=== PATIENT | female | born 1940 | race Caucasian/White ===

== ENCOUNTER 2017-01-09 07:37 | Emergency (ER) | payer OTHER, MEDICARE ==
[~2017-01-09] VITALS: Ht 160 cm; Wt 66.2 kg
[~2017-01-09 07:37] MED LIST: ASP81TEC PO; CALTRATE 600 +1 EACH PO; CETI10TA17 PO; CHOL40002 PO; CYANOCOBALAMIN; CYCL1DRO OP; EST.625T PO; EST45C VG; FLT05NA16 NSEACH; FLUT50DI IH; HYDR200T46 PO; LACT1TAB12 PO; LEVO75TA57 PO; MELA1CAP2 PO; MULT-1029 PO; NF-ESOM40C PO; OFLO5DRO7 OT; OMEG-12 PO; REMICADE; VIT1TABL93 PO
[2017-01-09 08:06] LABS: MEAN PLATELET VOLUME 10.4 FL (7.4-10.4); RED BLOOD COUNT 4.42 10^6/uL (4.35-5.85); RED CELL DISTRIBUTION WIDTH 13.9 % (10.0-14.5)
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
[2017-01-09] MEDS ORDERED: ATEN25TA PO (08:25)
[2017-01-09] MEDS ORDERED: LOSA100T28 PO (08:25)
[2017-01-09 08:26] LABS: ALANINE AMINOTRANSFERASE 30 U/L (0-55); ALBUMIN 4.1 GM/DL (3.2-4.5); ALCOHOL < 10 MG/DL (<10); ANION GAP 11 MMOL/L (5-14); ASPARTATE AMINO TRANSFERASE 27 U/L (5-34); BILIRUBIN,DIRECT 0.2 MG/DL (0.0-0.3); BILIRUBIN,INDIRECT 0.6 MG/DL; BILIRUBIN,TOTAL 0.8 MG/DL (0.1-1.0); BLOOD UREA NITROGEN 9 MG/DL (7-18); BUN/CREATININE RATIO 9; CARBON DIOXIDE 25 MMOL/L (21-32); CHLORIDE 105 MMOL/L (98-107); CREATININE SERUM 1.04 MG/DL (0.60-1.30); GFR ESTIMATED 52; GLUCOSE 97 MG/DL (70-105); POTASSIUM 3.6 MMOL/L (3.6-5.0); SODIUM 141 MMOL/L (135-145); TOTAL PROTEIN 7.6 GM/DL (6.4-8.2)
[2017-01-09] MEDS ORDERED: NS IV 1000 ML 1,000 ML IV ONE (08:29)
[2017-01-09] MEDS ORDERED: NS 100 ML (IVPB) BAG IV ONE (08:45)
[2017-01-09] MEDS ORDERED: CATHETER FLUSH 10 ML SYR IV PRN (08:45)
[2017-01-09] MEDS ORDERED: IOHEXOL 350 MG/ML 100 ML (OMNIPAQUE 350) VIAL IV ONE (08:45)
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
--- NOTE | 2017-01-09 09:04 | Diagnostic Imaging Report ---
PROCEDURE: CT thoracic spine without contrast. TECHNIQUE: Multiple axial computerized tomography images were obtained from the base of the thoracic spine to the vertex without intravenous contrast. INDICATION: Upper chest pain. COMPARISON: CT chest from same day. FINDINGS: Static alignment of the thoracic spine is maintained. There is no significant dara or retrolisthesis. There is no evidence of jumped facets. Evaluation of vertebral body contours demonstrates subtle deformity of the superior endplates of T1, T2, and T3. Distinct fracture lines however cannot be identified. There is no prior available for comparison. Otherwise, remaining vertebral body heights are preserved. No bony fragments are seen within the spinal canal. There are mild multilevel degenerative changes consisting of intervertebral disc height loss. Pre-and paravertebral soft tissue structures are unremarkable. Included portions of the lungs are clear. Please note, CT of the chest was also performed, but separately dictated. Finally, there is calcified aortic and coronary artery atherosclerosis. IMPRESSION: Subtle deformities of the superior endplates of T1 through T3. Chronic deformities are favored, but there is no prior available for comparison. Acute injury cannot be entirely excluded. Correlation with MRI is recommended. Report was called to Dr. Gomez @ [facility], [place] @ 9:04 AM/cecilia. Dictated by: Dictated on workstation # [id number]
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
[2017-01-09 09:21] LABS: BILIRUBIN,URINE NEGATIVE (NEGATIVE); KETONES,URINE NEGATIVE (NEGATIVE); LEUKOCYTE ESTERASE ,URINE 1+ (NEGATIVE); NITRITE,URINE NEGATIVE (NEGATIVE); PH,URINE 8 (5-9); PROTEIN,URINE 2+ (NEGATIVE); UROBILINOGEN,URINE NORMAL (NORMAL)
[2017-01-09 09:34] LABS: SQUAMOUS EPITHELIAL CELL,UR RARE /HPF; WBC,URINE 0-2 /HPF
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
[2017-01-09 11:20] VITALS: BP 142/81
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
== END 2017-01-09 11:20 | disposition home or self-care (01) ==
LOC: EDUNIT# 07:40 → ER 07:41
DX: S12.9XXA Fracture of neck, unspecified, initial encounter (principal); S22.000A Wedge compression fracture of unspecified thoracic vertebra, initial encounter for closed fracture; S20.212A Contusion of left front wall of thorax, initial encounter; Z79.82 Long term (current) use of aspirin; Z87.891 Personal history of nicotine dependence; V49.60XA Unspecified car occupant injured in collision with unspecified motor vehicles in traffic accident, initial encounter
CPT/HCPCS: 36415; 70450; 71010; 71260; 72125; 72128; 74177; 80048; 80076; 80320; 81000; 84484; 85027; 86850; 86900; 86901; 93005; 93041; 96360

== ENCOUNTER 2020-08-31 22:48 | Emergency (ER) | payer MEDICARE ==
[~2020-08-31] VITALS: Ht 160 cm; Wt 66.0 kg
[~2020-08-31 22:48] MED LIST changes: +ATEN25TA PO; +LOSA100T57 PO; +OFLO5DRO33 OT; -OFLO5DRO7 OT
[2020-08-31] MEDS ORDERED: NITROGLYCERIN 0.4 MG SL TABS BTL 25'S SL PRN (23:00)
[2020-08-31] MEDS ORDERED: ASPIRIN 81 MG CHEW (CHILDREN'S ASA) PO ONE (23:00)
[2020-08-31 23:09] LABS: BASOPHILS # (AUTO) 0.1 10^3/uL (0.0-0.1); BASOPHILS % (AUTO) 1 % (0-10); EOSINOPHILS # (AUTO) 0.1 10^3/uL (0.0-0.3); EOSINOPHILS % (AUTO) 2 % (0-10); HEMATOCRIT 38 % (35-52); LYMPHOCYTES # (AUTO) 2.7 10^3/uL (1.0-4.0); LYMPHOCYTES % (AUTO) 34 % (12-44); MEAN CORPUSCULAR HEMOGLOBIN 29 pg (25-34); MEAN CORPUSCULAR HGB CONC 32 g/dL (32-36); MEAN CORPUSCULAR VOLUME 90 fL (80-99); MEAN PLATELET VOLUME 10.1 fL (9.0-12.2); MONOCYTES # (AUTO) 0.7 10^3/uL (0.0-1.0); MONOCYTES % (AUTO) 9 % (0-12); NEUTROPHILS # (AUTO) 4.2 10^3/uL (1.8-7.8); NEUTROPHILS % (AUTO) 54 % (42-75); PLATELET COUNT 256 10^3/uL (130-400); WHITE BLOOD COUNT 7.8 10^3/uL (4.3-11.0)
[2020-08-31] MEDS ORDERED: ENOXAPARIN 80 MG/0.8 ML (LOVENOX) SYR SC ONE (23:15)
[2020-08-31 23:22] LABS: ALBUMIN 4.2 GM/DL (3.2-4.5); POTASSIUM 3.4 MMOL/L (3.6-5.0)
[2020-08-31 23:23] LABS: CALCIUM 9.2 MG/DL (8.5-10.1); INR 0.9 (0.8-1.4); PROTHROMBIN TIME PATIENT 12.4 SEC (12.2-14.7)
[2020-08-31 23:24] LABS: TOTAL PROTEIN 7.9 GM/DL (6.4-8.2)
[2020-08-31 23:26] LABS: BILIRUBIN,TOTAL 0.5 MG/DL (0.1-1.0)
[2020-08-31 23:31] LABS: MAGNESIUM 1.9 MG/DL (1.6-2.4)
[2020-08-31 23:38] LABS: CREATINE KINASE MB 1.9 NG/ML (<6.6)
[2020-08-31 23:53] LABS: TSH (THYROID ANALYZER) 0.36 UIU/ML (0.35-4.94)
--- NOTE | 2020-09-01 01:19 | ED Cardiac General ---
History of Present Illness General Chief Complaint: Chest Pain Stated Complaint: CHEST PAIN,NAUSEA Nursing Triage Note: c/o chest pain after coughing at 1930 Source: patient History of Present Illness Date Seen by Provider: Aug 31, 2020 Time Seen by Provider: 23:00 Initial Comments PT ARRIVES VIA POV FROM HOME C/O CHEST PAIN SINCE 193 TONIGHT, AFTER GETTING HOME FROM A MEETING PAIN IS ALL ACROSS CHEST ALSO STATES HER HEART RATE HAS BEEN FAST AND IRREGULAR SINCE THEN WELL--HEART RATE 100-163 STATES SHE HAS HAD ATRIAL FIBRILLATION IN THE PAST, BUT HAS NOT HAD IT FOR A LONG TIME, AND IS NOT ON BLOOD THINNERS. C/O SHORTNESS OF BREATH. STATES SHE HAS COPD AND IS ALWAYS SHORT OF BREATH, BUT THIS IS A LITTLE WORSE THAN NORMAL + SWEATS + NAUSEA, NO VOMITING NO SWELLING OR RECENT ILLNESS PT HAS HISTORY OF CAD AND HAS HAD STENT X 1 NO CHANGES IN MEDICATIONS NTG SL AMMUNITION OFFICER: No ASA po AMMUNITION OFFICER: No PCP: [facility] RESOLUTION EXPERT: DR. DIEHL AT [place] Allergies and Home Medications Allergies Coded Allergies: amoxicillin trihydrate (Verified Allergy, Intermediate, 03/16/12) cefuroxime sodium (Verified Allergy, Intermediate, 03/16/12) doxycycline (Verified Allergy, Intermediate, 03/16/12) potassium clavulanate (Verified Allergy, Intermediate, 03/16/12) Home Medications Aspirin 81 Mg Tabec, 81 MG PO DAILY, (Reported) Atenolol 25 Mg Tablet, 25 MG PO DAILY, (Reported) Cetirizine Hcl 10 Mg Tablet, 10 MG PO DAILY, (Reported) Cholecalciferol (Vitamin D3) 4,000 Unit Capsule, 5,000 UNIT PO DAILY, (Reported) Cyclosporine 32 Ea Droperette, 1 DROPS OP DAILY, (Reported) Estrogens Conjugated 45 Gm Cr, 0.5 GM VG DAILY, (Reported) 1 APPLICATORFUL MON., WED. MON. Fluticasone Propionate 16 Gm [place], 2 SPRAYS NSEACH Q12H PRN, (Reported) Lactobacillus Cmb#7/Fos/Inulin 1 Each Tablet, 1 EACH PO PRN, (Reported) Levothyroxine Sodium 75 Mcg Tablet, 75 MCG PO DAILY, (Reported) Losartan Potassium 100 Mg Tablet, 100 MG PO DAILY, (Reported) Jeff-3/Dha/Epa/Fish Oil 1 Each Capsule.dr, 2,000 MG PO DAILY, (Reported) [B-12 Inject] , Q 7 WEEKS, (Reported) [Remicade] , 100 MG Q 8 WEEKS, (Reported) Patient Home Medication List Home Medication List Reviewed: Yes Review of Systems Review of Systems Constitutional: see HPI, diaphoresis, dizziness Respiratory: See HPI, Shortness of Air Cardiovascular: See HPI, Chest Pain; Denies Edema; Irregular Heart Rate, Lightheadedness, Palpitations Gastrointestinal: See HPI; Denies Abdominal Pain; Nausea; Denies Vomiting Genitourinary: No Symptoms Reported Musculoskeletal: no symptoms reported Skin: no symptoms reported Psychiatric/Neurological: No Symptoms Reported Endocrine: No Symptoms Reported Hematologic/Lymphatic: No Symptoms Reported Past Wsodgpm-Svaycl-Yjrfgc Hx Past Med/Social Hx: Reviewed and Corrections made Patient Social History Alcohol Use: Denies Use Drug of Choice: [place] Smoking Status: Former Smoker (SMOKED 1/2 PPD) Former Smoker, Quit: Dec 24, 2013 Recent Infectious Disease Expo: No Recent Hopitalizations: No Immunizations Up To Date Date of Pneumonia Vaccine: May 15, 2005 Date of Influenza Vaccine: Feb 24, 2012 Seasonal Allergies Seasonal Allergies: No Past Medical History Surgeries: Yes Appendectomy, Coronary Stent, Ear Surgery, Joint Replacement Respiratory: Yes COPD Cardiac: Yes (STENT X 1 IN 2005) Atrial Fibrillation, Coronary Artery Disease, High Cholesterol, Hypertension Neurological: No 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 Genitourinary: No Gastrointestinal: Yes Gastroesophageal Reflux, Hiatal Hernia Musculoskeletal: Yes (VERTEBRAL COMPRESSION FRACTURES; LEFT HIP REPLACEMENT) Arthritis, Rheumatoid Arthritis, Fractures Endocrine: Yes Hypothyroidsim HEENT: Yes (Sinus problems, deviated septum) Cancer: No Psychosocial: No Integumentary: No Blood Disorders: No Family Medical History No Pertinent Family Hx PAST SURGICAL HISTORY: -CARDIAC CATH WITH STENT X 1 2005 -LEFT HIP REPLACEMENT -BILATERAL MYRINGOTOMY TUBES -APPENDECTOMY Physical Exam Vital Signs Vital Signs - First Documented 08/31/20 22:52 Temp 36.6 Pulse 126 Resp 18 B/P (MAP) 170/109 (129) Pulse Ox 93 O2 Delivery Room Air Capillary Refill : Less Than 3 Seconds Height, Weight, BMI Height: 5'3.00" Weight: 146lbs. 7.0oz. 66.293501pg; 25.00 BMI Method:Stated General Appearance: No Apparent Distress, WD/WN HEENT: PERRL/EOMI Neck: Normal Inspection; No Carotid Bruit, No JVD Respiratory: Normal Breath Sounds, No Accessory Muscle Use, No Respiratory Distress Cardiovascular: No JVD, No Murmur, Normal Peripheral Pulses, Irregularly Irregular, Tachycardia Gastrointestinal: Non Tender, Soft Extremity: Normal Inspection, Normal Range of Motion, Non Tender, No Calf Tenderness, No Pedal Edema Neurologic/Psychiatric: Alert, Oriented x3, No Motor/Sensory Deficits, Normal Mood/Affect, loan approver II-XII Norm as Tested Skin: Normal Color, Warm/Dry Progress/Results/Core Measures Results/Orders Lab Results Laboratory Tests Test 08/31/20 23:00 Range/Units White Blood Count 7.8 4.3-11.0 10^3/uL Red Blood Count 4.18 3.80-5.11 10^6/uL Hemoglobin 12.0 11.5-16.0 g/dL Hematocrit 38 35-52 % Mean Corpuscular Volume 90 80-99 fL Mean Corpuscular Hemoglobin 29 25-34 pg Mean Corpuscular Hemoglobin Concent 32 32-36 g/dL Red Cell Distribution Width 13.4 10.0-14.5 % Platelet Count 256 130-400 10^3/uL Mean Platelet Volume 10.1 9.0-12.2 fL Immature Granulocyte % (Auto) 0 % Neutrophils (%) (Auto) 54 42-75 % Lymphocytes (%) (Auto) 34 12-44 % Monocytes (%) (Auto) 9 0-12 % Eosinophils (%) (Auto) 2 0-10 % Basophils (%) (Auto) 1 0-10 % Neutrophils # (Auto) 4.2 1.8-7.8 10^3/uL Lymphocytes # (Auto) 2.7 1.0-4.0 10^3/uL Monocytes # (Auto) 0.7 0.0-1.0 10^3/uL Eosinophils # (Auto) 0.1 0.0-0.3 10^3/uL Basophils # (Auto) 0.1 0.0-0.1 10^3/uL Immature Granulocyte # (Auto) 0.0 0.0-0.1 10^3/uL Prothrombin Time 12.4 12.2-14.7 SEC INR Comment 0.9 0.8-1.4 Activated Partial Thromboplast Time 32 24-35 SEC Sodium Level 139 135-145 MMOL/L Potassium Level 3.4 L 3.6-5.0 MMOL/L Chloride Level 103 98-107 MMOL/L Carbon Dioxide Level 20 L 21-32 MMOL/L Anion Gap 16 H 5-14 MMOL/L Blood Urea Nitrogen 11 7-18 MG/DL Creatinine 1.00 0.60-1.30 MG/DL Estimat Glomerular Filtration Rate 53 BUN/Creatinine Ratio 11 Glucose Level 109 H 70-105 MG/DL Calcium Level 9.2 8.5-10.1 MG/DL Corrected Calcium 9.0 8.5-10.1 MG/DL Magnesium Level 1.9 1.6-2.4 MG/DL Total Bilirubin 0.5 0.1-1.0 MG/DL Aspartate Amino Transf (AST/SGOT) 21 5-34 U/L Alanine Aminotransferase (ALT/SGPT) 19 0-55 U/L Alkaline Phosphatase 49 40-136 U/L Total Creatine Kinase 119 29-168 U/L Creatine Kinase MB 1.9 <6.6 NG/ML Myoglobin 72.8 10.0-92.0 NG/ML Troponin I < 0.028 <0.028 NG/ML B-Type Natriuretic Peptide 263.3 H <100.0 PG/ML Total Protein 7.9 6.4-8.2 GM/DL Albumin 4.2 3.2-4.5 GM/DL Amylase Level 137 H 25-125 U/L Lipase 73 8-78 U/L TSH [place] Testing 0.36 0.35-4.94 UIU/ML My Orders Orders - MALCOM HERNANDEZ DO Cbc With Automated Diff (08/31/20 22:57) Magnesium (08/31/20 22:57) Chest 1 View, Ap/Pa Only (08/31/20 22:57) Ekg Tracing (08/31/20 22:57) Comprehensive Metabolic Panel (08/31/20 22:57) Myoglobin Serum (08/31/20 22:57) Protime With Inr (08/31/20:57) Partial Thromboplastin Time (08/31/20 22:57) O2 (08/31/20 22:57) Monitor-Rhythm Ecg Trace Only (08/31/20 22:57) Ed Iv/Invasive Line Start (08/31/20 22:57) Creatine Kinase (08/31/20 22:57) Creatine Kinase Mb (08/31/20 22:57) Lipase (08/31/20 22:57) Amylase (08/31/20 22:57) BNP (08/31/20 22:57) Troponin I (08/31/20 22:57) Nitroglycerin 0.4 Mg Btl 25's (Nitrostat (08/31/20 23:00) Aspirin Chewable Tablet (Baby Aspirin Ch (08/31/20 23:00) Thyroid Analyzer (08/31/20 23:01) Enoxaparin Injection (Lovenox Injection) (08/31/20 23:15) Diltiazem Injection (Cardizem Injection) (08/31/20 23:15) Ekg Tracing (09/01/20 00:16) Ekg Tracing (09/01/20 01:34) Medications Given in ED Current Medications Medications Dose Ordered Sig/Jaime Route Start Time Stop Time Status Last Admin Dose Admin Aspirin 324 mg ONCE ONCE PO 08/31/20 23:00 08/31/20 23:01 DC 08/31/20 23:13 324 MG Diltiazem HCl 10 mg ONCE ONCE IVP 08/31/20 23:15 08/31/20 23:16 DC 08/31/20 23:13 10 MG Enoxaparin Sodium 70 mg ONCE ONCE SC 08/31/20 23:15 08/31/20 23:16 DC 08/31/20 23:13 70 MG Vital Signs/I&O 08/31/20 08/31/20 08/31/20 09/01/20 22:52 22:52 22:52 01:43 Temp 36.6 36.6 Pulse 126 61 Resp 18 28 B/P (MAP) 170/109 (129) 138/74 Pulse Ox 93 93 94 O2 Delivery Room Air Room Air Room Air Room Air Blood Pressure Mean: 129 Progress Progress Note : Progress Note GIVEN ASPIRIN GAVE CARDIZEM 10 MG X 1 DOSE, WITH DECREASED IN HEART RATE DOWN TO 80'S-90'S, AND BP DOWN TO NORMAL RANGE GAVE LOVENOX CHEST PAIN RESOLVED WITHOUT FURTHER TREATMENT EMS WAS PREPARING FOR TRANSFER, PT C/O SOME MILD CHEST DISCOMFORT, MONITOR NOW SHOWS NSR REPEAT EKG DONE AND IS IN NSR WITH NO ACUTE ST CHANGES. PAIN GRADUALLY RESOLVED ON IT'S OWN UNEVENTFUL ER STAY Initial ECG Impression Date: Aug 31, 2020 Initial ECG Impression Time: 22:55 Initial ECG Rate: 127 Initial ECG Rhythm: A Fib/Flutter Initial ECG Impression: Nonspecific Changes EKG : EKG Time: 00:28 Rate: 88 Rhythm: A Fib/Flutter Comment EKG #3 AT 0135, RATE 63, NORMAL SINUS RHYTHM, NO ACUTE CHANGES/NORMAL ST SEGMENTS. Diagnostic Imaging Comments CXR--NO ACUTE PROCESS, PENDING RADIOLOGIST REVIEW Reviewed: Reviewed by Me Departure Communication (Admissions) [id number]--CALLED [facility]. PAGING RESOLUTION EXPERT [id number]--SPOKE WITH DR. VELEZ, RESOLUTION EXPERT, ACCEPTS PT FOR ADMIT. NO ADDITIONAL RECOMMENDATIONS AT THIS TIME. Impression Primary Impression: Chest pain Additional Impressions: RECURRENT ATRIAL FIBRILLATION WITH RVR HTN (hypertension) HX OF CAD WITH STENT Disposition: 02 XFER SHT-TRM HOSP Condition: Improved Transfer Transfer Reason: Patient preference Transfer Facility: [place], [place] Method of Transfer: EMS Departure-Patient Inst. Referrals: NO,LOCAL PHYSICIAN (PCP/Family) Primary Care Physician MALCOM HERNANDEZ DO Sep 01, 2020 01:19
[2020-09-01 01:43] VITALS: BP 138/74
--- NOTE | 2020-09-01 05:58 | Diagnostic Imaging Report ---
EXAMINATION: Portable erect AP chest at 1116 PM INDICATION: Chest pain The heart size is within normal limits and stable when compared to 01/09/2017. The chronic pulmonary changes seen previously are again evident and no different. There is no sign of failure, pneumonia or pleural effusion to indicate an acute abnormality. The mediastinum is not widened. The osseous structures are intact. IMPRESSION: There is no evidence for active disease. Dictated by: Dictated on workstation # [id number]
== END 2020-09-01 01:48 | disposition short-term general hospital (02) ==
LOC: EDUNIT# 22:48 → ER 22:50
DX: R07.9 Chest pain, unspecified (principal); I48.20 Chronic atrial fibrillation, unspecified; I10 Essential (primary) hypertension; E03.9 Hypothyroidism, unspecified; J44.9 Chronic obstructive pulmonary disease, unspecified; Z88.1 Allergy status to other antibiotic agents; Z88.8 Allergy status to other drugs, medicaments and biological substances; Z95.5 Presence of coronary angioplasty implant and graft; Z87.891 Personal history of nicotine dependence; Z79.890 Hormone replacement therapy; Z79.82 Long term (current) use of aspirin
CPT/HCPCS: 36415; 71045; 80053; 82150; 82550; 82553; 83690; 83735; 83874; 83880; 84443; 84484; 85025; 85610; 85730; 93005; 93041

== ENCOUNTER 2020-09-24 22:19 | Emergency (ER) | payer MEDICARE ==
[~2020-09-24] VITALS: Ht 160 cm; Wt 61.0 kg
[2020-09-24] MEDS ORDERED: fentaNYL INJ 100 MCG/2 ML AMP IVP ONE ×2 (22:45→23:30)
--- NOTE | 2020-09-24 22:57 | ED Lower Extremity ---
General Chief Complaint: Lower Extremity Stated Complaint: FOOT PAIN Nursing Triage Note: TO ED VIA [facility] FROM HOME WITH C/O PAIN THAT STARTED AN HOUR OR SO CORSETIER TO TOPS AND BOTTOMS OF BILATERAL FEET. Nursing Sepsis Screen: No Definite Risk Source: patient Exam Limitations: no limitations History of Present Illness Date Seen by Provider: September 24, 2020 Time Seen by Provider: 22:20 Initial Comments This 80-year-old woman presents to the emergency room via EMS with complaints of red, hot, swollen, and extremely painful feet bilaterally. Symptoms started early this evening. She has never experienced anything quite like this before. She reports recently starting amiodarone in an effort to control her atrial fibrillation. She also reports a history of rheumatoid arthritis for which she has been on Remicade. She did not get her Remicade dose on Monday as planned. She is afebrile and denies any other new symptoms. [facility] provider [facility] [place]. Her primary warp dyeing tender is Dr. Bermudez. She denies diabetes or neuropathy. Her feet are so painful she is unable to walk. Allergies and Home Medications Allergies Coded Allergies: amoxicillin trihydrate (Verified Allergy, Intermediate, 03/16/12) cefuroxime sodium (Verified Allergy, Intermediate, 03/16/12) doxycycline (Verified Allergy, Intermediate, 03/16/12) potassium clavulanate (Verified Allergy, Intermediate, 03/16/12) Home Medications Aspirin 81 Mg Tabec, 81 MG PO DAILY, (Reported) Atenolol 25 Mg Tablet, 25 MG PO DAILY, (Reported) Cetirizine Hcl 10 Mg Tablet, 10 MG PO DAILY, (Reported) Cholecalciferol (Vitamin D3) 4,000 Unit Capsule, 5,000 UNIT PO DAILY, (Reported) Cyclosporine 32 Ea Drope[place], 1 DROPS OP DAILY, (Reported) Estrogens Conjugated 45 Gm Cr, 0.5 GM VG DAILY, (Reported) 1 APPLICATORFUL MON., WED. MON. Fluticasone Propionate 16 Gm [place], 2 SPRAYS NSEACH Q12H PRN, (Reported) Hydrocodone/Acetaminophen 1 Each Tablet, 0.5-1 TAB PO Q4H PRN for PAIN-MODERATE (5-7) Prescribed by: MUKESH ROSE on 09/25/20 0205 Lactobacillus Cmb#7/Fos/Inulin 1 Each Tablet, 1 EACH PO PRN, (Reported) Levothyroxine Sodium 75 Mcg Tablet, 75 MCG PO DAILY, (Reported) Losartan Potassium 100 Mg Tablet, 100 MG PO DAILY, (Reported) Magnesium Oxide 400 Mg Tablet, 400 MG PO BID Prescribed by: MUKESH ROSE on 09/25/20203 [place]-3/Dha/Epa/Fish Oil 1 Each Capsule.dr, 2,000 MG PO DAILY, (Reported) Potassium Chloride 20 Meq Tablet.er, 20 MEQ PO DAILY Prescribed by: MUKESH ROSE on 09/25/20203 [B-12 Inject] , Q 7 WEEKS, (Reported) [Remicade] , 100 MG Q 8 WEEKS, (Reported) Patient Home Medication List Home Medication List Reviewed: Yes Review of Systems Constitutional: no symptoms reported EENTM: no symptoms reported Respiratory: no symptoms reported Cardiovascular: see HPI Gastrointestinal: no symptoms reported Genitourinary: no symptoms reported : No Musculoskeletal: see HPI Skin: see HPI Psychiatric/Neurological: No Symptoms Reported Past Iuhxtus-Vkrtyw-Micioq Hx Past Med/Social Hx: Reviewed Nursing Past Med/Soc Hx Patient Social History Alcohol Use: Denies Use Drug of Choice: LILA Smoking Status: Former Smoker Former Smoker, Quit: Dec 24, 2013 Recent Infectious Disease Expo: No Recent Hopitalizations: No Immunizations Up To Date Date of Pneumonia Vaccine: May 15, 2005 Date of Influenza Vaccine: Feb 24, 2012 Seasonal Allergies Seasonal Allergies: No Past Medical History Surgeries: Yes Appendectomy, Coronary Stent, Ear Surgery, Joint Replacement Respiratory: Yes COPD Cardiac: Yes (STENT X 1 IN 2005) Atrial Fibrillation, Coronary Artery Disease, High Cholesterol, Hypertension Neurological: No 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 Genitourinary: No Gastrointestinal: Yes Gastroesophageal Reflux, Hiatal Hernia Musculoskeletal: Yes (VERTEBRAL COMPRESSION FRACTURES; LEFT HIP REPLACEMENT) Arthritis, Rheumatoid Arthritis, Fractures Endocrine: Yes Hypothyroidsim HEENT: Yes (Sinus problems, deviated septum) Cancer: No Psychosocial: No Integumentary: No Blood Disorders: No Family Medical History No Pertinent Family Hx PAST SURGICAL HISTORY: -CARDIAC CATH WITH STENT X 1 2005 -LEFT HIP REPLACEMENT -BILATERAL MYRINGOTOMY TUBES -APPENDECTOMY Physical Exam Vital Signs Vital Signs - First Documented 09/24/20 09/25/20 22:22 02:19 Temp 37.0 Pulse 103 Resp 16 B/P (MAP) 114/98 (103) Pulse Ox 98 O2 Delivery Room Air Capillary Refill : Less Than 3 Seconds Height, Weight, BMI Height: 5'3.00" Weight: 146lbs. 7.0oz. 66.440904vk; 23.00 BMI Method:Stated General Appearance: WD/WN, mild distress HEENT: PERRL/EOMI, normal ENT inspection Neck: normal inspection Cardiovascular: no edema, no murmur, tachycardia (Regular) Respiratory: lungs clear, normal breath sounds, no respiratory distress Gastrointestinal: normal bowel sounds, non tender, soft Legs: bilateral leg non-tender, bilateral leg normal inspection, bilateral leg no evidence of injury Knees: bilateral knee non-tender, bilateral knee normal inspection, bilateral knee no evidence of injury Ankles: bilateral ankle joint effusion, bilateral ankle pain, bilateral ankle soft tissue tenderness, bilateral ankle swelling Feet: bilateral foot pain, bilateral foot soft tissue tenderness, bilateral foot swelling Neurologic/Tendon: other (Hypersensitive to touch of the feet and ankles) Neurologic/Psychiatric: expediter service order II-XII nml as tested, no motor/sensory deficits, alert, normal mood/affect, oriented x 3, other (Slight tremor) Skin: warm/dry, other (Erythema and warmth of the feet and ankle) Progress/Results/Core Measures Results/Orders Lab Results Laboratory Tests Test 09/24/20 22:45 Range/Units White Blood Count 12.0 H 4.3-11.0 10^3/uL Red Blood Count 3.54 L 3.80-5.11 10^6/uL Hemoglobin 9.9 L 11.5-16.0 g/dL Hematocrit 30 L 35-52 % Mean Corpuscular Volume 86 80-99 fL Mean Corpuscular Hemoglobin 28 25-34 pg Mean Corpuscular Hemoglobin Concent 33 32-36 g/dL Red Cell Distribution Width 13.2 10.0-14.5 % Platelet Count 235 130-400 10^3/uL Mean Platelet Volume 9.8 9.0-12.2 fL Immature Granulocyte % (Auto) 0 % Neutrophils (%) (Auto) 90 H 42-75 % Lymphocytes (%) (Auto) 5 L 12-44 % Monocytes (%) (Auto) 4 0-12 % Eosinophils (%) (Auto) 0 0-10 % Basophils (%) (Auto) 0 0-10 % Neutrophils # (Auto) 10.8 H 1.8-7.8 10^3/uL Lymphocytes # (Auto) 0.6 L 1.0-4.0 10^3/uL Monocytes # (Auto) 0.5 0.0-1.0 10^3/uL Eosinophils # (Auto) 0.0 0.0-0.3 10^3/uL Basophils # (Auto) 0.0 0.0-0.1 10^3/uL Immature Granulocyte # (Auto) 0.0 0.0-0.1 10^3/uL Neutrophils % (Manual) 81 % Lymphocytes % (Manual) 4 % Monocytes % (Manual) 4 % Band Neutrophils 11 % Blood Morphology Comment NORMAL Erythrocyte Sedimentation Rate 35 H 0-30 MM/HR Sodium Level 131 L 135-145 MMOL/L Potassium Level 2.7 L 3.6-5.0 MMOL/L Chloride Level 98 98-107 MMOL/L Carbon Dioxide Level 22 21-32 MMOL/L Anion Gap 11 5-14 MMOL/L Blood Urea Nitrogen 9 7-18 MG/DL Creatinine 1.50 H 0.60-1.30 MG/DL Estimat Glomerular Filtration Rate 33 BUN/Creatinine Ratio 6 Glucose Level 121 H 70-105 MG/DL Uric Acid 5.0 2.6-7.2 MG/DL Calcium Level 8.7 8.5-10.1 MG/DL Corrected Calcium 9.1 8.5-10.1 MG/DL Magnesium Level 1.3 L 1.6-2.4 MG/DL Total Bilirubin 0.7 0.1-1.0 MG/DL Aspartate Amino Transf (AST/SGOT) 17 5-34 U/L Alanine Aminotransferase (ALT/SGPT) 19 0-55 U/L Alkaline Phosphatase 31 L 40-136 U/L C-Reactive Protein High Sensitivity 2.13 H 0.00-0.50 MG/DL Total Protein 6.7 6.4-8.2 GM/DL Albumin 3.5 3.2-4.5 GM/DL Thyroid Stimulating Hormone (TSH) 3.42 0.35-4.94 UIU/ML Free Thyroxine 1.28 0.70-1.48 NG/DL My Orders Orders - MUKESH LIN MD Cbc With Automated Diff (09/24/20 22:31) Comprehensive Metabolic Panel (09/24/20 22:31) Hs C Reactive Protein (09/24/20 22:31) Erythrocyte Sedimentation Rate (09/24/20 22:31) Ed Iv/Invasive Line Start (09/24/20 22:31) Uric Acid (09/24/20 22:31) Thyroid Stimulating Hormone (09/24/20 22:41) Free T4 (Free Thyroxine) (09/24/20 22:41) Fentanyl Inj (Sublimaze Injection) (09/24/20 22:45) Ekg Tracing (09/24/20 22:49) Manual Differential (09/24/20 22:45) Fentanyl Inj (Sublimaze Injection) (09/24/20 23:30) Ns Iv 1000 Ml (Sodium Chloride 0.9%) (09/24/20 23:30) Potassium Cl 10meq/50ml Ivpb (Kcl 10 Meq (09/24/20 23:30) Magnesium (09/24/20 23:27) Magnesium 1 Gm/100 Ml Ivpb (Magnesium Govea (09/25/20 00:00) Magnesium 1 Gm/100 Ml Ivpb (Magnesium Govea (09/25/20 00:00) Potassium Cl 10meq/50ml Ivpb (Kcl 10 Meq (09/25/20 00:00) Magnesium Oxide Tablet (Mag Ox Tablet) (09/25/20 01:30) Potassium Chloride (Tablet) (Klor Con Ta (09/25/20 01:30) Medications Given in ED Current Medications Medications Dose Ordered Sig/Jaime Route Start Time Stop Time Status Last Admin Dose Admin Fentanyl Citrate 25 mcg ONCE ONCE IVP 09/24/20 22:45 09/24/20 22:46 DC 09/24/20 22:50 25 MCG Fentanyl Citrate 50 mcg ONCE ONCE IVP 09/24/20 23:30 09/24/20 23:31 DC 09/24/20 23:34 50 MCG Magnesium Oxide 400 mg ONCE ONCE PO 09/25/20 01:30 09/25/20 01:31 DC 09/25/20 02:06 400 MG Magnesium Sulfate/ Dextrose 100 ml @ 100 mls/hr ONCE ONCE IV 09/25/20 00:00 09/25/20 00:59 DC 09/25/20 00:04 100 MLS/HR Magnesium Sulfate/ Dextrose 100 ml @ 100 mls/hr ONCE ONCE IV 09/25/20 00:00 09/25/20 00:59 DC 09/25/20 01:06 100 MLS/HR Potassium Chloride 40 meq ONCE ONCE PO 09/25/20 01:30 09/25/20 01:31 DC 09/25/20 02:07 40 MEQ Potassium Chloride 50 ml @ 50 mls/hr ONCE ONCE IV 09/24/20 23:30 09/25/20 00:29 DC 09/24/20 23:33 50 MLS/HR Potassium Chloride 50 ml @ 50 mls/hr ONCE ONCE IV 09/25/20 00:00 09/25/20 00:59 DC 09/25/20 00:18 50 MLS/HR Sodium Chloride 1,000 ml @ 0 mls/hr Q0M ONCE IV 09/24/20 23:30 09/24/20 23:31 DC 09/24/20 23:33 500 MLS/HR Vital Signs/I&O 09/24/20 09/24/20 09/25/20 22:22 22:50 02:19 Temp 37.0 37.0 37.0 Pulse 103 90 Resp 16 16 B/P (MAP) 114/98 (103) 120/60 (103) Pulse Ox 98 O2 Delivery Room Air Room Air Blood Pressure Mean: 103 Progress Progress Note #1: Time: 22:56 Progress Note Patient has been given fentanyl to help with pain. Labs have been ordered. I suspect she is experiencing an adverse reaction to amiodarone or an autoimmune syndrome as she missed her Remicade dose this week. I discussed with Dr. Nix who advised stopping amiodarone and having the patient contact her warp dyeing tender in the morning for alternative instructions as amiodarone is known to cause skin reactions. Progress Note #2: Progress Note Hypomagnesia and hypokalemia were initially treated with IV electrolyte replacement. Oral doses were given prior to discharge. Feet were feeling much improved prior to discharge. See discharge instructions for further discussion. Initial ECG Impression Date: September 24, 2020 Initial ECG Impression Time: 23:25 Initial ECG Rate: 93 Initial ECG Rhythm: Normal Sinus Comment Sinus rhythm with no ST elevation or depression. LVH with intraventricular c onduction delay by automated read. Departure Impression Primary Impression: Hypokalemia Additional Impressions: Hypomagnesemia Rash of foot Foot pain Qualified Codes: M79.671 - Pain in right foot; M79.672 - Pain in left foot Paroxysmal atrial fibrillation Disposition: 01 HOME, SELF-CARE Condition: Improved Departure-Patient Inst. Decision time for Depature: 02:01 Referrals: NO,LOCAL PHYSICIAN (PCP/Family) Primary Care Physician Patient Instructions: Hypokalemia Add. Discharge Instructions: Please contact Dr. Bermudez's office first thing this morning to inform them of your foot pain and rash. The symptoms along with your loss of appetite may be related to amiodarone use. Please ask them about an alternative to amiodarone. Take your potassium and magnesium replacements as prescribed over the next 5 days. You need to have your potassium and magnesium levels checked again soon, preferably by Monday. Return to care if you have worsening symptoms. Use your pain medication as prescribed. Call with questions or concerns. All discharge instructions reviewed with patient and/or family. Voiced understanding. Scripts Hydrocodone/Acetaminophen (Hydrocodone-Acetamin 5-325 mg) 1 Each Tablet 0.5-1 TAB PO Q4H PRN for PAIN-MODERATE (5-7), #5 TAB Prov: MUKESH LIN MD 09/25/20 Potassium Chloride (Potassium Chloride) 20 Meq Tablet.er 20 MEQ PO DAILY, #5 TAB Prov: MUKESH LIN MD 09/25/20 Magnesium Oxide (Magnesium Oxide) 400 Mg Tablet 400 MG PO BID, #10 TAB Prov: MUKESH LIN MD 09/25/20 MUKESH LIN MD September 24, 2020 22:57
[2020-09-24 22:58] LABS: BASOPHILS % (AUTO) 0 % (0-10); EOSINOPHILS % (AUTO) 0 % (0-10); HEMATOCRIT 30 % (35-52); HEMOGLOBIN 9.9 g/dL (11.5-16.0); LYMPHOCYTES # (AUTO) 0.6 10^3/uL (1.0-4.0); LYMPHOCYTES % (AUTO) 5 % (12-44); MEAN CORPUSCULAR HEMOGLOBIN 28 pg (25-34); MEAN CORPUSCULAR HGB CONC 33 g/dL (32-36); MEAN CORPUSCULAR VOLUME 86 fL (80-99); MEAN PLATELET VOLUME 9.8 fL (9.0-12.2); MONOCYTES # (AUTO) 0.5 10^3/uL (0.0-1.0); MONOCYTES % (AUTO) 4 % (0-12); NEUTROPHILS # (AUTO) 10.8 10^3/uL (1.8-7.8); NEUTROPHILS % (AUTO) 90 % (42-75); PLATELET COUNT 235 10^3/uL (130-400)
[2020-09-24 23:06] LABS: ALBUMIN 3.5 GM/DL (3.2-4.5)
[2020-09-24 23:07] LABS: CALCIUM 8.7 MG/DL (8.5-10.1)
[2020-09-24 23:09] LABS: TOTAL PROTEIN 6.7 GM/DL (6.4-8.2)
[2020-09-24 23:10] LABS: BILIRUBIN,TOTAL 0.7 MG/DL (0.1-1.0)
[2020-09-24 23:12] LABS: CREATININE SERUM 1.5 MG/DL (0.60-1.30)
[2020-09-24 23:21] LABS: POTASSIUM 2.7 MMOL/L (3.6-5.0)
[2020-09-24 23:23] LABS: BAND NEUTROPHILS 11 %; ERYTHROCYTE SEDIMENTATION RATE 35 MM/HR (0-30); LYMPHOCYTES % (MANUAL) 4 %; MONOCYTES % (MANUAL) 4 %; NEUTROPHILS % (MANUAL) 81 %; RBC MORPH NORMAL
[2020-09-24] MEDS ORDERED: NS IV 1000 ML 1,000 ML IV ONE (23:30)
[2020-09-24] MEDS ORDERED: POTASSIUM CL 10MEQ/50ML IVPB 50 ML IV ONE (23:30)
[2020-09-24 23:37] LABS: FREE T4 (FREE THYROXINE) 1.28 NG/DL (0.70-1.48)
[2020-09-25] MEDS ORDERED: MAGNESIUM 1 GM/100 ML IVPB 100 ML IV ONE ×2
[2020-09-25] MEDS ORDERED: POTASSIUM CL 10MEQ/50ML IVPB 50 ML IV ONE
[2020-09-25] MEDS ORDERED: MAGNESIUM OXIDE (MAG-OX)400 MG TAB PO ONE (01:30)
[2020-09-25] MEDS ORDERED: KCL 10 MEQ TAB (MICRO K) PO ONE (01:30)
[2020-09-25] MEDS ORDERED: POTA-51 PO (02:04)
[2020-09-25] MEDS ORDERED: MAGN400T8 PO (02:04)
[2020-09-25] MEDS ORDERED: ACHD5005 PO (02:04)
[2020-09-25 02:19] VITALS: BP 120/60
== END 2020-09-25 02:19 | disposition home or self-care (01) ==
LOC: EDUNIT# 22:19 → ER 22:20
DX: M79.671 Pain in right foot (principal); M79.672 Pain in left foot; R21 Rash and other nonspecific skin eruption; I48.0 Paroxysmal atrial fibrillation; E87.6 Hypokalemia; E83.42 Hypomagnesemia; R20.3 Hyperesthesia; R00.0 Tachycardia, unspecified; I10 Essential (primary) hypertension; I25.10 Atherosclerotic heart disease of native coronary artery without angina pectoris; J44.9 Chronic obstructive pulmonary disease, unspecified; M06.9 Rheumatoid arthritis, unspecified; E03.9 Hypothyroidism, unspecified; Z95.5 Presence of coronary angioplasty implant and graft; Z87.891 Personal history of nicotine dependence; Z88.1 Allergy status to other antibiotic agents; Z88.8 Allergy status to other drugs, medicaments and biological substances; Z79.82 Long term (current) use of aspirin; Z79.890 Hormone replacement therapy; Z79.899 Other long term (current) drug therapy; Z79.51 Long term (current) use of inhaled steroids
CPT/HCPCS: 36415; 80053; 83735; 84439; 84443; 84550; 85007; 85027; 85652; 86141; 93005

== ENCOUNTER 2021-02-17 10:34 | Emergency (ER) | payer MEDICARE ==
[~2021-02-17] VITALS: Ht 160 cm; Wt 58.0 kg
[~2021-02-17 10:34] MED LIST changes: +ACHD5005 PO; +MAGN400T8 PO; +POTA-51 PO
--- NOTE | 2021-02-17 11:29 | ED General ---
General Chief Complaint: Cardiac/General Problems Stated Complaint: HIGH BP 214/123 Nursing Triage Note: Pt ambulatory to ED with c/o high blood pressure. Pt reports her blood pressure at 0930 this morning after taking spironolactone 25mg and it was 196/94. She took clonidine and rechecked her blood pressure at 1015 at it was 214/123. Pt reports her regulatory compliance coordinator, Dr. Bermudez, changed her medications yesterday. Pt BP upon arrival 153/100. Pt denies CP, SOB, HARDY, or any other symptoms at this time. Source of Information: Patient Exam Limitations: No Limitations History of Present Illness Date Seen by Provider: Feb 17, 2021 Time Seen by Provider: 11:28 Initial Comments Patient is an 80-year-old female who presents to the emergency room with concern for elevated blood pressure. Patient states that she recently saw Dr. Bermudez on February 12 and was prescribed a new medication, spironolactone. She states she took that medication for the first time yesterday and felt fine all day. She took it this morning early and shortly afterwards started experiencing what she felt was lip swelling and tingling although when she looked in the mirror her lips were not swollen. She states she just did not feel right and began taking her blood pressure and noted that the numbers were climbing upward highest was 205 systolic. She denies chest pain, shortness of breath, unilateral numbness weakness or tingling. She denies headache or visual change. She took her "rescue medication", p.o. clonidine. Her symptoms started to subside. She called her regulatory compliance coordinator, Dr. Bermudez's nurse Bouchra and talk to her about her blood pressure and medication. She is waiting to hear back from her. As I talked to her she is completely asymptomatic and feels back to normal systolic blood pressure 154. All other review of systems reviewed and negative except as stated Timing/Duration: 1-3 Hours Severity: Moderate Associated Systoms: Malaise Allergies and Home Medications Allergies Coded Allergies: amoxicillin trihydrate (Verified Allergy, Intermediate, 03/16/12) cefuroxime sodium (Verified Allergy, Intermediate, 03/16/12) doxycycline (Verified Allergy, Intermediate, 03/16/12) potassium clavulanate (Verified Allergy, Intermediate, 03/16/12) Patient Home Medication List Home Medication List Reviewed: Yes Aspirin (Aspirin Ec 81 Mg) 81 Mg Tabec, 81 MG PO DAILY, (Reported) Entered as Reported by: TAYLOR HERNANDEZ on 03/16/121621 Atenolol (Atenolol) 25 Mg Tablet, 25 MG PO DAILY, (Reported) Entered as Reported by: ZECHARIAH TONG on 01/09/17 0825 Calcium Carbonate/Vitamin D3 (Caltrate 600 + D Chewable Tab) 1 Each Tab.chew, 2 EACH PO, (Reported) Entered as Reported by: TAYLOR HERNANDEZ on 03/16/12 162 Cetirizine Hcl (Cetirizine Hcl) 10 Mg Tablet, 10 MG PO DAILY, (Reported) Entered as Reported by: TAYLOR HERNANDEZ on 03/16/121621 Cholecalciferol (Vitamin D3) (Vitamin D3) 4,000 Unit Capsule, 5,000 UNIT PO D AILY, (Reported) Entered as Reported by: NORA SUBRAMANIAN on 03/17/12 153 Cyclosporine (Restasis) 32 Ea Droperette, 1 DROPS OP DAILY, (Reported) Entered as Reported by: NORA SUBRAMANIAN on 03/17/12 153 Estrogens Conjugated (Premarin Vag Cream) 45 Gm Cr, 0.5 GM VG DAILY, (Reported) Entered as Reported by: NORA SUBRAMANIAN on 03/17/12 153 Fluticasone Propionate (Flonase 0.05% Nasal Sims) 16 Gm Sims, 2 SPRAYS NSEACH Q12H PRN, (Reported) Entered as Reported by: NORA SUBRAMANIAN on 03/17/12 153 Hydrocodone/Acetaminophen (Hydrocodone-Acetamin 5-325 mg) 1 Each Tablet, 0.5-1 TAB PO Q4H PRN for PAIN-MODERATE (5-7) Prescribed by: MUKESH ROSE on 09/25/20 0205 Lactobacillus Cmb#7/Fos/Inulin (Probiotic Complex Tablet) 1 Each Tablet, 1 EACH PO PRN, (Reported) Entered as Reported by: TAYLOR HERNANDEZ on 03/16/121621 Levothyroxine Sodium (Synthroid) 75 Mcg Tablet, 75 MCG PO DAILY, (Reported) Entered as Reported by: TAYLOR HERNANDEZ on 03/16/121621 Losartan Potassium (Losartan Potassium) 100 Mg Tablet, 100 MG PO DAILY, (Reported) Entered as Reported by: ZECHARIAH TONG on 01/09/17 0825 Magnesium Oxide (Magnesium Oxide) 400 Mg Tablet, 400 MG PO BID Prescribed by: MUKESH ROSE on 09/25/20 020 Mu-Vits-Min Th/Lycopene/Lutein (Centrum Silver Tablet) 1 Each Tablet, 1 EACH PO, (Reported) Entered as Reported by: TAYLOR HERNANDEZ on 03/16/12 161 [place]-3/Dha/Epa/Fish Oil (Fish Oil 1,000 Mg Ec Softgel) 1 Each Capsule.dr, 2,000 MG PO DAILY, (Reported) Entered as Reported by: TAYLOR HERNANDEZ on 03/16/12 161 Potassium Chloride (Potassium Chloride) 20 Meq Tablet.er, 20 MEQ PO DAILY Prescribed by: MUKESH ROSE on 09/25/20 0204 [B-12 Inject] , Q 7 WEEKS, (Reported) Entered as Reported by: TAYLOR HERNANDEZ on 03/16/12 162 [Remicade] , 100 MG Q 8 WEEKS, (Reported) Entered as Reported by: TAYLOR HERNANDEZ on 03/16/12 162 Review of Systems Review of Systems Constitutional: see HPI EENTM: other (Lip tingling, sensation of lip swelling) Respiratory: no symptoms reported Cardiovascular: no symptoms reported Gastrointestinal: no symptoms reported Genitourinary: no symptoms reported Musculoskeletal: no symptoms reported Skin: no symptoms reported Psychiatric/Neurological: Anxiety; Denies Headache All Other Systems Reviewed Negative Unless Noted: Yes Past Dgizqgr-Gbmvur-Dvxyyl Hx Seasonal Allergies Seasonal Allergies: No Past Medical History Surgeries: Yes Appendectomy, Coronary Stent, Ear Surgery, Joint Replacement Respiratory: Yes COPD Cardiac: Yes (STENT X 1 IN 2005) Atrial Fibrillation, Coronary Artery Disease, High Cholesterol, Hypertension Neurological: No 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 Genitourinary: No Gastrointestinal: Yes Gastroesophageal Reflux, Hiatal Hernia Musculoskeletal: Yes (VERTEBRAL COMPRESSION FRACTURES; LEFT HIP REPLACEMENT) Arthritis, Rheumatoid Arthritis, Fractures Endocrine: Yes Hypothyroidsim HEENT: Yes (Sinus problems, deviated septum) Cancer: No Psychosocial: No Integumentary: No Blood Disorders: No Family Medical History No Pertinent Family Hx PAST SURGICAL HISTORY: -CARDIAC CATH WITH STENT X 1 2005 -LEFT HIP REPLACEMENT -BILATERAL MYRINGOTOMY TUBES -APPENDECTOMY Physical Exam Vital Signs Vital Signs - First Documented 02/17/21 10:50 Temp 36.7 Pulse 62 Resp 19 B/P (MAP) 153/100 (117) Pulse Ox 99 O2 Delivery Room Air Capillary Refill : Less Than 3 Seconds Height, Weight, BMI Height: 5'3.00" Weight: 146lbs. 7.0oz. [id number]; 22.00 BMI Method:Stated General Appearance: No Apparent Distress, WD/WN Eyes: Bilateral Eye Normal Inspection, Bilateral Eye PERRL, Bilateral Eye EOMI HEENT: PERRL/EOMI Neck: Normal Inspection Respiratory: Lungs Clear, Normal Breath Sounds, No Accessory Muscle Use, No Respiratory Distress Cardiovascular: Regular Rate, Rhythm, No Murmur, Normal Peripheral Pulses Gastrointestinal: Non Tender, Soft Extremity: Normal Inspection, Normal Range of Motion Neurologic/Psychiatric: Alert, Oriented x3, No Motor/Sensory Deficits, Normal Mood/Affect Skin: Normal Color, Warm/Dry Progress/Results/Core Measures Suspected Sepsis SIRS Temperature: Pulse: 62 Respiratory Rate: 19 Blood Pressure 153 /100 Mean: 117 Results/Orders My Orders Orders - BRITANY AMARO MD Ed Iv/Invasive Line Start (02/17/21 10:56) Cbc With Automated Diff (02/17/21 10:56) Basic Metabolic Panel (02/17/21 10:56) Ua Culture If Indicated (02/17/21 10:56) Ekg Tracing (02/17/21 10:56) Vital Signs/I&O 02/17/21 10:50 Temp 36.7 Pulse 62 Resp 19 B/P (MAP) 153/100 (117) Pulse Ox 99 O2 Delivery Room Air Capillary Refill : Less Than 3 Seconds Blood Pressure Mean: 117 Departure Impression Primary Impression: High blood pressure Qualified Codes: I10 - Essential (primary) hypertension Disposition: 01 HOME, SELF-CARE Condition: Stable Departure-Patient Inst. Decision time for Depature: 11:28 Referrals: NO,LOCAL PHYSICIAN (PCP/Family) Primary Care Physician Patient Instructions: High Blood Pressure in Adults Add. Discharge Instructions: Do not take the spironolactone again. Please keep in close contact with Bouchra and Dr. Bermudez regarding any further blood pressure medication changes. Come back to the emergency department for any new, concerning or emergent complaints such as chest pain, one-sided weakness, severe headache, vision change or any other emergent concerning symptoms. BRITANY AMARO MD Feb 17, 2021 11:29
[2021-02-17 11:56] VITALS: BP 151/71
== END 2021-02-17 11:43 | disposition home or self-care (01) ==
LOC: ER 10:34 → EDUNIT# 10:34 → ER 11:43
DX: I10 Essential (primary) hypertension (principal); J44.9 Chronic obstructive pulmonary disease, unspecified; E03.9 Hypothyroidism, unspecified; Z79.890 Hormone replacement therapy; Z79.82 Long term (current) use of aspirin; Z79.899 Other long term (current) drug therapy
CPT/HCPCS: 99281

== ENCOUNTER → 2021-06-05 | Outpatient (CLI) | payer MEDICARE ==
[~2021-06-05] MED LIST changes: -MAGN400T8 PO; +MGX400T PO
[2021-06-05 11:05] LABS: BILIRUBIN,URINE NEGATIVE (NEGATIVE); CLARITY,URINE SL CLOUDY; COLOR,URINE YELLOW; GLUCOSE, URINE (UA) NEGATIVE (NEGATIVE); KETONES,URINE NEGATIVE (NEGATIVE); LEUKOCYTE ESTERASE ,URINE 2+ (NEGATIVE); NITRITE,URINE POSITIVE (NEGATIVE); PROTEIN,URINE NEGATIVE (NEGATIVE)
[2021-06-05 11:29] LABS: BACTERIA,URINE FEW /HPF; SQUAMOUS EPITHELIAL CELL,UR 0-2 /HPF; WBC,URINE 50-100 /HPF
== END ==
LOC: LABNPT 11:00
PROVIDERS: ATTEND Orthopaedic Surgery
DX: N39.0 Urinary tract infection, site not specified (principal)
CPT/HCPCS: 81000; 87077; 87088; 87186